=== PATIENT | female | born 1990 | race Caucasian/White ===

== ENCOUNTER 2016-07-26 16:28 | Emergency (ER) | payer OTHER ==
--- NOTE | 2016-07-26 17:56 | ERNOTE ---
Medical Problem HPI - Narrative Date of Service: 07/26/16 - General Chief Complaint: General Assessment Time Seen by Provider: 07/26/16 17:43 Source: patient Exam Limitations: no limitations - Immun/Allergies/Home Medications Immunizations: IMMUNIZATION HX History of Influenza Vaccine More Information Required Hx Pneumococcal Vaccination More Information Required Allergies/Adverse Reactions: Allergies No Known Allergies Allergy (Verified 07/26/16 16:42) Home Medications: HOME MEDICATIONS Levonorgestrel [Mirena] 1 each IY ONCE 04/14/16 [Last Taken Unknown] Multivitamins [Multivitamin Kamar] 1 cap PO DAILY 04/14/16 [Last Taken Unknown] - History of Present History Narrative: Pt. comes in with c/o BLQ pain with apain on intercourse and unable to find mirena strings for a week. Pt. has had mirena for a week and it was new mirena , as she had a mirena for 5 years before this. Pt. denies any SOB, CP, NVD, fever, or other symptoms at this time. Pt. villalta an appointment with her OBGYN in a week but states that she felt uncomfortable waiting that long. Review of Systems - Review of Systems Constitutional: Present: no symptoms reported, decreased activity level. Absent : recent illness, fever, chills, weakness, fatigue, malaise ENT: Present: no symptoms reported Respiratory: Present: no symptoms reported. Absent: shortness of breath, cough , wheezing Cardiology: Present: no symptoms reported. Absent: chest pain, palpitations, edema Gastrointestinal/Abdominal: Present: abdominal pain - LLQ. Absent: nausea, vomiting, diarrhea Genitourinary: Present: no symptoms reported. Absent: frequency, dysuria, hematuria, discharge Musculoskeletal: Present: no symptoms reported. Absent: back pain, joint pain Skin: Present: no symptoms reported Neurological: Present: no symptoms reported. Absent: headache, dizziness/light- headedness, numbness, tingling All Other Systems: All systems neg except as marked - Patient's Past Medical History Patient History - Medical: UTI'S Patient History - Cardiac/Respiratory: No pertinent hx Patient History - Cancer: No Hx of Cancer Patient History - Surgical Procedures: T & A Patient History - Other: None - Family History Father Family History - Medical: History Unknown Family History - Cardiac/Respiratory: History Unknown Mother Family History - Medical: Diabetes Type 2 Family History - Cardiac/Respiratory: Hypertension - Social History Living Situations: home Abuse History: No History of abuse Psych History: No pertinent hx Alcohol Use: none Drug Use: none - Immunizations Hx Pneumococcal Vaccination: More Information Required to Determine History of Influenza Vaccine: More Information Required to Determine Physical Exam - Physical Exam General Appearance: Present: wd/wn, alert, no apparent distress Eye Exam: Normal inspection: bilateral, PERRL: bilateral, EOMI: bilateral Ears, Nose, Throat: Present: normal ENT inspection, hearing grossly normal, normal pharynx Neck: Present: normal inspection, nontender. Absent: lymphadenopathy (R), lymphadenopathy (L) Respiratory: Present: no respiratory distress, normal breath sounds, no accessory muscle use, chest nontender, lungs clear Cardiovascular/Chest: Present: regular rate, rhythm, no murmur, normal peripheral pulses Gastrointestinal/Abdominal: Present: normal bowel sounds, nondistended, soft, no organomegaly, tenderness - R adnexa Back Exam: Present: normal inspection, normal range of motion, no CVA tenderness , no vertebral tenderness Extremity Exam: Present: normal inspection Neurological Exam: Present: alert, oriented, normal mood/affect, no motor/ sensory deficits Skin Exam: Present: normal color, warm/dry. Absent: pallor, skin rash Lymphatic Exam: Present: no adenopathy Pelvic Exam: Present: cervical motion tendernes, tender adnexa - R, tender uterus. Absent: active bleeding, discharge, lesions ED Progress - Vital Signs Patient's Vital Signs:: I have reviewed the patient's vital signs. Vital Signs: Vital Signs 07/26/16 16:35 Temperature 36.8 C Pulse Rate 77 Respiratory 14 Rate Blood Pressure 114/69 O2 Sat by Pulse 100 Oximetry - CT/Ultrasound CT/Ultrasound Narrative: US positive fro L ovarian cyst 5x5x[address] - Progress/Reassessment Chief Complaint: General Assessment Departure - Departure Clinical Impression: Ovarian cyst Qualifiers: Laterality: left Qualified Code(s): N83.202 - Unspecified ovarian cyst, left side Disposition: Home self-care Condition: Good Instructions: Ovarian Cyst, [id number] Additional Instructions: Please follow up with Dr Shrestha as planned. Referrals: Luna Shrestha MD [Primary Care Provider] -
[2016-07-26 18:15] LABS: Urine Appearance Clear; Urine Bacteria None Seen; Urine Bilirubin Negative (NEGATIVE); Urine Blood Negative /ul (NEGATIVE); Urine Color Yellow; Urine Ketone Negative (NEGATIVE); Urine Nitrite Negative (NEGATIVE); Urine Protein Negative (NEGATIVE); Urine RBC None Seen /hpf (0-5); Urine Urobilinogen Normal (NORMAL); Urine WBC None Seen /hpf (0-5)
[2016-07-26 22:20] VITALS: BP 113/75
== END 2016-07-26 21:00 | disposition home or self-care (01) ==
LOC: ER 16:28
DX: R10.32 Left lower quadrant pain (principal); N83.202 Unspecified ovarian cyst, left side; Z79.3 Long term (current) use of hormonal contraceptives

== ENCOUNTER 2016-10-31 08:56 | Emergency (ER) | payer OTHER ==
[2016-10-31] MEDS ORDERED: ACETAMINOPHEN 500 MG TABLET PO ONE (10:46)
--- NOTE | 2016-10-31 10:48 | ERNOTE ---
Integumentary HPI - Narrative Date of Service: 10/31/16 - General Presenting Symptoms: rash, insect bite Time Seen by Provider: 10/31/16 10:12 Source: patient, family Exam Limitations: no limitations - Immun/Allergies/Home Medications Immunizations: IMMUNIZATION HX Immunizations Up to Date No History of Influenza Vaccine No Hx Pneumococcal Vaccination No Allergies/Adverse Reactions: Allergies Allergy/AdvReac Type Severity Reaction Status Date / Time No Known Allergies Allergy Verified 10/31/16 09:05 Home Medications: HOME MEDICATIONS Levonorgestrel [Mirena] 1 each IY ONCE 04/14/16 [Last Taken Unknown] Multivitamins [Multivitamin Kamar] 1 cap PO DAILY 04/14/16 [Last Taken Unknown] Doxycycline Hyclate [Vibratab] 100 mg PO BID #28 tablet NS 10/31/16 [Last Taken Unknown] - History of Present Illness Narrative: Patient is a 26 year old female who presents to the ED with significant other with complaints of tock bite and rash, headache and fatigue since 10/17. Patient states she was at [facility] on 10/17 when she was found to have two ticks, one to back of neck and one in between shoulder blades. Patient states ticks were "ripped off" at that time. States begun to have headache beginning 10/23. States pain top of head unrelieved with Tylenol or ASA. States intermittent pain without NV, vision or mental status changes. States rash to back of neck extending upward since 10/29. No itch, drainage noted. Denies fevers, chills, NVD or joint pain/swelling yet complaints of rash, headache and fatigue. Mirena for control with spotty periods. No changes in detergents, soaps, foods. Date (Duration): 10/17/16 Location: Reports: scalp, neck Severity: mild Exposure: Reports: tick bite/ant - reported tick bite x 2 Modifying Factors - (Improves): Reports: nothing Modifying Factors - (Worsens): Reports: nothing Associated Symptoms: Reports: rash, headache. Denies: hives, petechiae, swelling/mass/lumps, edema, fever, nasal congestion, sore throat, malaise Review of Systems - Review of Systems Constitutional: Present: fatigue. Absent: recent illness, fever, chills, malaise, weight loss EYE: Present: no symptoms reported. Absent: eye pain, eye discharge, blurred vision, double vision, vision changes ENT: Absent: ear pain, ear discharge, nose pain, nose congestion, nasal drainage Respiratory: Present: no symptoms reported. Absent: shortness of breath, cough Cardiology: Present: no symptoms reported. Absent: chest pain, palpitations, syncope Gastrointestinal/Abdominal: Present: no symptoms reported. Absent: nausea, vomiting, diarrhea Genitourinary: Present: no symptoms reported Musculoskeletal: Absent: back pain, muscle pain, muscle stiffness, neck pain, joint pain, joint swelling Skin: Present: rash - base of scalp upward Neurological: Present: headache. Absent: anxiety, depressed, emotional problems , dizziness/light-headedness, seizure, weakness, numbness, tingling, tremors Endocrine: Present: no symptoms reported Hematologic/Lymphatic: Present: no symptoms reported Psych: Present: no symptoms reported - Patient's Past Medical History Patient History - Medical: UTI'S Patient History - Cardiac/Respiratory: No pertinent hx Patient History - Cancer: No Hx of Cancer Patient History - Surgical Procedures: T & A Patient History - Other: None - Family History Father Family History - Medical: History Unknown Family History - Cardiac/Respiratory: History Unknown Mother Family History - Medical: Diabetes Type 2 Family History - Cardiac/Respiratory: Hypertension - Social History Living Situations: home Abuse History: No History of abuse Psych History: No pertinent hx Smoking Status: Current some day smoker Alcohol Use: none Drug Use: none - Immunizations Immunizations Up to Date: No Hx Pneumococcal Vaccination: No History of Influenza Vaccine: No Physical Exam - Physical Exam General Appearance: Present: wd/wn, alert, no apparent distress Eye Exam: Normal inspection: bilateral, PERRL: bilateral Ears, Nose, Throat: Present: normal ENT inspection, normal pharynx. Absent: abnormal TM (R), abnormal TM (L), cerumen impaction, nasal congestion, sinus pain/drainage, pharyngeal swelling, tonsillar exudate, tonsillar swelling, dry mucous membranes Neck: Present: normal inspection, nontender, supple, full range of motion. Absent: lymphadenopathy (R), lymphadenopathy (L) Respiratory: Present: no respiratory distress, normal breath sounds, no accessory muscle use, chest nontender, lungs clear Cardiovascular/Chest: Present: regular rate, rhythm, no murmur, normal peripheral pulses Peripheral Pulses: N=norm/S=strong/W=weak/B=bound/A=absent: Carotid (R): Normal , Carotid (L): Normal, Radial (R): Normal, Radial (L): Normal Gastrointestinal/Abdominal: Present: normal bowel sounds, nontender, nondistended, soft, no organomegaly Rectal Exam: Present: deferred Back Exam: Present: normal inspection, normal range of motion, no CVA tenderness , no vertebral tenderness. Absent: CVA tenderness (R), CVA tenderness (L), vertebral tenderness Extremity Exam: Present: normal inspection, non-tender, normal range of motion, no edema Neurological Exam: Present: alert, oriented, normal mood/affect, no motor/ sensory deficits Skin Exam: Present: normal color, warm/dry Lymphatic Exam: Present: no adenopathy ED Progress - Results and Orders Patient's Lab Results:: I have reviewed the patient's lab results. - Vital Signs Patient's Vital Signs:: I have reviewed the patient's vital signs. Vital Signs: Vital Signs 10/31/16 09:00 Temperature 36.8 C Pulse Rate 83 Respiratory 18 Rate Blood Pressure 98/67 O2 Sat by Pulse 97 Oximetry - Progress/Reassessment Chief Complaint: Insect Bite Progress:: Unchanged Departure Clinical Impression: Rash - Departure Disposition: Home Follow Up Needed Instructions: Headache and Arthritis Additional Instructions: Doxycycline as prescribed until finished. Follow up in 1 week with primary provider. Return if symptoms worsen or if vomiting, changes in mental condition occur. Referrals: Andie Cornejo FNP [Primary Care Provider] - Prescriptions: Doxycycline Hyclate [Vibratab] 100 mg PO BID #28 tablet NS
[2016-10-31 11:32] VITALS: BP 110/69
== END 2016-10-31 11:24 | disposition home or self-care (01) ==
LOC: ER 08:56
DX: R21 Rash and other nonspecific skin eruption (principal); F17.200 Nicotine dependence, unspecified, uncomplicated; Z87.440 Personal history of urinary (tract) infections

== ENCOUNTER 2016-12-23 22:55 | Emergency (ER) | payer OTHER ==
[2016-12-23 23:14] LABS: Hematocrit 37.6 % (37.0-47.0); Hemoglobin 12.3 gm/dL (12.5-16.0); Mean Cell Volume 86.4 fl (78-100); Mean Corpuscular Hemoglobin 28.3 pg (27-31); Mean Corpuscular Hgb Conc 32.7 g/dl (32-36); Mean Platelet Volume 10.1 fl (6.0-9.5); Neutrophil # 4.9 K/mm3 (1.3-6.0); Neutrophil % 49.6 % (42-75.0); Platelet Count 189 K/mm3 (150-450); Red Blood Count 4.35 M/mm3 (4.2-5.4); Red Cell Distribution Width 12.6 % (11.5-14.0); White Blood Count 9.8 K/mm3 (4.0-10.5)
[2016-12-23 23:23] LABS: INR 1.1 INR (0.90-1.10); Partial Thrombolplastin Time 27.2 Seconds (24-32); Prothrombin Time (Patient) 11.4 Seconds (9.4-11.4)
--- NOTE | 2016-12-23 23:28 | ERNOTE ---
Chest Pain/Cardiac HPI Chief Complaint: Chest Pain Time Seen by Provider: 12/23/16 23:13 Source: patient Exam Limitations: no limitations Immunizations: IMMUNIZATION HX Immunizations Up to Date No History of Influenza Vaccine No Hx Pneumococcal Vaccination No Allergies/Adverse Reactions: Allergies No Known Allergies Allergy (Verified 12/23/16 23:03) Home Medications: HOME MEDICATIONS Levonorgestrel [Mirena] 1 each IY ONCE 04/14/16 [Last Taken Unknown] Nabumetone 750 mg PO BID #20 tablet 12/24/16 [Last Taken Unknown] Narrative: Pt had onset of chest pain while driving this morning. She had some shortness of breath with this Timing: constant Severity/Quality: moderate Location: substernal Chest Pain Radiation: no radiation Activities at Onset: other - driving Modifying Factors - Improves: Present: nothing Modifying Factors - Worsens: Present: nothing Associated Symptoms: Absent: headache, dizziness, cough, diaphoresis - Patient's Past Medical History Patient History - Medical: UTI'S Patient History - Cardiac/Respiratory: No pertinent hx Patient History - Cancer: No Hx of Cancer Patient History - Surgical Procedures: T & A Patient History - Other: None LMP (females 10-50): unknown - Family History Father Family History - Medical: History Unknown Family History - Cardiac/Respiratory: History Unknown Mother Family History - Medical: Diabetes Type 2 Family History - Cardiac/Respiratory: Hypertension - Social History Living Situations: home Abuse History: No History of abuse Psych History: No pertinent hx Smoking Status: Current some day smoker Alcohol Use: occasionally Drug Use: none - Immunizations Immunizations Up to Date: No Hx Pneumococcal Vaccination: No History of Influenza Vaccine: No ED Progress - Results and Orders Patient's Lab Results:: I have reviewed the patient's lab results. Results and Orders: Laboratory Tests 12/23/16 12/23/16 12/23/16 23:13 23:13 23:13 WBC 9.8 Hgb 12.3 L Hct 37.6 Plt Count 189 PT 11.4 INR (Anticoag Therapy) 1.10 PTT (Norman) 27.2 D-Dimer Sodium 141 Potassium 3.4 D Chloride 104 Carbon Dioxide 30.5 Anion Gap 9.9 BUN 14 Creatinine 0.82 Est GFR (Non-Af Amer) 88 BUN/Creatinine Ratio 17.1 Random Glucose 123 H Calcium 8.2 Total Bilirubin 0.4 AST 28 ALT 34 Alkaline Phosphatase 65 Troponin I Less than 0.017 Total Protein 7.4 Albumin 4.1 12/23/16 23:50 WBC Hgb Hct Plt Count PT INR (Anticoag Therapy) PTT (Frio) D-Dimer 0.21 Sodium Potassium Chloride Carbon Dioxide Anion Gap BUN Creatinine Est GFR (Non-Af Amer) BUN/Creatinine Ratio Random Glucose Calcium Total Bilirubin AST ALT Alkaline Phosphatase Troponin I Total Protein Albumin - Vital Signs Patient's Vital Signs:: I have reviewed the patient's vital signs. Vital Signs: Vital Signs 12/23/16 22:59 Temperature 36.8 C Pulse Rate 82 Respiratory 20 Rate Blood Pressure 114/67 O2 Sat by Pulse 100 Oximetry - EKG EKG: NSR - with sinus arrhythmia EKG read: Interp. by me - X-Ray X-Ray #1 X-Ray: chest Interpretation: Interp. by me X-ray Comments: nothing acute, no infiltrate or effusion - Progress/Reassessment Chief Complaint: Chest Pain Progress Note-Subjective: 12/24/16 01:20 Pt sleeping so she is unable to decide if toradol has had any effect on her pain. Departure - Departure Clinical Impression: Chest pain of unknown etiology Disposition: Home self-care Condition: Good Instructions: Nonspecific Chest Pain, [id number] Additional Instructions: take the prescription medication twice a day. see your regular doctor if not improving, return to the ER as needed Prescriptions: Nabumetone 750 mg PO BID #20 tablet
[2016-12-23 23:32] LABS: Troponin I Less than 0.017 ng/ml (0.00-0.10)
[2016-12-23 23:36] LABS: ALT 34 U/L (19-67); AST 28 U/L (0-48); Albumin * 4.1 gm/dl (3.4-5.0); Alkaline Phosphatase * 65 U/L (50-170); Anion Gap 9.9 mmol/L (6.8-13.8); BUN/Creatinine Ratio 17.1 (9.0-21.6); Bilirubin, Total 0.4 mg/dL (0.0-1.1); Blood Urea Nitrogen 14 mg/dL (3-23); Ca. Corrected For Albumin 7.8 mg/dL (8.4-10.2); Calcium * 8.2 mg/dL (7.9-10.9); Carbon Dioxide 30.5 mmol/L (24-32.6); Chloride 104 mmol/L (97-106); Glucose * 123 mg/dL (70-110); Potassium 3.4 mmol/L (3.4-4.6); Sodium 141 mmol/L (132-142); Total Protein 7.4 gm/dL (6.2-8.2)
[2016-12-24] MEDS ORDERED: KETOROLAC TROMETHAMINE 30 MG/ML VIAL IV ONE (00:35)
[2016-12-24] MEDS ORDERED: KETOROLAC TROMETHAMINE 30 MG/ML VIAL ONE (00:36)
[2016-12-24 01:32] VITALS: BP 93/52
== END 2016-12-24 01:32 | disposition home or self-care (01) ==
LOC: ER 22:55
DX: R07.89 Other chest pain (principal); R06.02 Shortness of breath